=== PATIENT | male | born 1970 | race Caucasian/White ===

== ENCOUNTER 2019-05-26 19:47 | Emergency (ER) | payer OTHER, MEDICAID ==
[~2019-05-26] VITALS: Ht 177.8 cm; Wt 72.6 kg
[2019-05-26 23:49] VITALS: BP 114/73
[2019-05-27] MEDS ORDERED: ACETAMINOPHEN 325 MG TAB PO ONE (00:30)
[2019-05-27] MEDS ORDERED: METHOCARBAMOL 500 MG TAB PO ONE (00:30)
== END 2019-05-27 00:45 | disposition home or self-care (01) ==
LOC: EDBD 19:47 → ER 19:51
DX: M25.511 Pain in right shoulder (principal); M62.838 Other muscle spasm; M54.2 Cervicalgia; Z98.84 Bariatric surgery status; V49.59XA Passenger injured in collision with other motor vehicles in traffic accident, initial encounter; Y93.89 Activity, other specified; Y99.8 Other external cause status; Y92.488 Other paved roadways as the place of occurrence of the external cause
CPT/HCPCS: 73030; 73501

== ENCOUNTER 2020-07-08 13:44 | Emergency (ER) | payer OTHER, MEDICAID ==
[~2020-07-08] VITALS: Ht 188 cm; Wt 102.1 kg
[2020-07-08 14:15] VITALS: BP 113/73
[2020-07-08] MEDS ORDERED: ONDANSETRON HCL 4 MG/2 ML VIAL IV ONE (14:45)
[2020-07-08] MEDS ORDERED: SODIUM CHLORIDE 0.9% 1,000 ML IV ONE (14:45)
[2020-07-08 15:20] LABS: Basophils # (auto) 0 10 ^3/uL (0-0.2); Hematocrit 41.1 % (41.0-53.0); Hemoglobin 14.1 g/dL (13.5-17.5); Neutrophils # (auto) 3.1 10 ^3/uL (1.6-8.6); White Blood Cell 5.3 10^3/uL (4.4-10.8)
[2020-07-08 15:22] LABS: Basophils % (auto) 0.8 % (0.0-2.0); Eosinophils # (auto) 0.1 10 ^3/uL (0-0.8); Eosinophils % (auto) 2.6 % (0.0-7.0); Lymphocytes # (auto) 1.2 10 ^3/uL (0.4-5.4); Lymphocytes % (auto) 22.3 % (10.0-50.0); Mean Corpuscular Hemoglobin 33.9 pg (28.0-32.0); Mean Corpuscular Hgb Conc. 34.2 g/dL (32.0-36.0); Monocytes # (auto) 0.9 10 ^3/uL (0-1.3); Monocytes % (auto) 16.3 % (0.0-12.0); Nucleated Red Blood Cells % 0.1 %; Platelet Count (auto) 237 10^3/uL (140-450); Red Blood Cells 4.16 10^6/uL (4.5-5.90)
[2020-07-08 15:37] LABS: Albumin 3.6 g/dL (3.4-5.0); BUN/Creatinine Ratio 12.8; Calcium 9.1 mg/dL (8.5-10.1); Potassium 3.4 mmol/L (3.5-5.1)
[2020-07-08 15:40] LABS: Bilirubin, Total 2.5 mg/dL (0.2-1.0); Total Protein 6.9 g/dL (6.4-8.2)
== END 2020-07-08 16:30 | disposition home or self-care (01) ==
LOC: ER 13:44
DX: B34.9 Viral infection, unspecified (principal); R19.7 Diarrhea, unspecified; Z20.828 Contact with and (suspected) exposure to other viral communicable diseases
CPT/HCPCS: 36415; 80053; 85025; 87426; 96360; 99283; J2405; J7030